=== PATIENT | male | born 1955 | race African-American/Black ===

== ENCOUNTER 2018-06-21 10:00 | Observation (INO) | payer BC, OTHER ==
[2018-06-21 10:34] LABS: Absolute Monocytes 0.6 K/uL (0.1-1.3); Absolute Neutrophil 2.4 K/uL (1.8-8.0); Eosinophils % 1.1 % (0-4.4); Hematocrit 44.5 % (39.6-49.0); Lymphocytes % 38.5 % (15.3-44.8); MPV 9.3 fL (7.6-11.3); Monocytes % 12.5 % (3.3-12.3)
[2018-06-21 10:35] LABS: Protime INR 1.05
[2018-06-21] MEDS ORDERED: NITROGLYCERIN 0.4 MG/TAB SL ONE (10:40)
[2018-06-21] MEDS ORDERED: ASPIRIN EC 81 MG TAB PO ONE (10:40)
[2018-06-21 10:52] LABS: ALT/SGPT 113 U/L (12-78); AST/SGOT 66 U/L (15-37); Albumin 3.8 g/dL (3.4-5.0); Alkaline Phosphatase 55 U/L (45-117); BUN Blood Urea Nitrogen 25 mg/dL (7-18); Bicarbonate 28 mmol/L (21-32); Bilirubin Direct 0.1 mg/dL (0-0.2); Bilirubin Total 0.5 mg/dL (0.2-1.0); Glucose Level 131 mg/dL (74-106); Magnesium 2.4 mg/dL (1.8-2.4); NT PRO-BNP 68 pg/mL (<125); Potassium 3.8 mmol/L (3.5-5.1); Protein, Total 8.6 g/dL (6.4-8.2); Sodium Level 139 mmol/L (136-145); Troponin (Emerg Dept Use Only) < 0.02 ng/mL (0.0-0.045)
--- NOTE | 2018-06-21 11:41 | EDPHYS ---
Physician Documentation [facility] Name: Johny Gamez Age: 63 yrs Sex: Male : 1955 Arrival Date: 06/21/2018 Time: 10:04 Bed 7 Private MD: Moe El E ED Physician Bradly Joseph HPI: 06/21 10:20 This 63 yrs old Black Male presents to ER via Ambulatory with complaints of Chest Pain. cp 10:20 The patient or guardian reports chest pain that is located primarily in the anterior cp chest wall, left. Onset: 2 day(s) ago. The pain does not radiate. The chest pain is described as tight. Duration: The patient or guardian reports multiple episodes, that wax and wane. 10:20 Associated signs and symptoms: Pertinent negatives: abdominal pain, cough, lower cp extremity pain, lower extremity swelling, near syncope, shortness of breath, syncope, vomiting. Modifying factors: the symptoms are aggravated by nothing. Historical: - Allergies: 10:08 No Known Allergies; la1 - Home Meds: 10:08 losartan 125 oral tab 1 tab once daily [Active]; la1 - PMHx: 10:08 Hypertension; Gout; la1 - PSHx: 10:08 None; la1 - Immunization history:: Adult Immunizations up to date. - Social history:: Smoking status: Patient/guardian denies using tobacco. - Ebola Screening: : No symptoms or risks identified at this time. ROS: 10:23 Constitutional: Negative for body aches, chills, fever, poor PO intake. cp 10:23 Eyes: Negative for injury, pain, redness, and discharge. cp 10:23 Cardiovascular: Positive for chest pain, Negative for edema, palpitations. 10:23 Respiratory: Negative for cough, shortness of breath, wheezing. 10:23 Abdomen/GI: Negative for abdominal pain, nausea, vomiting, and diarrhea, constipation, black/tarry stool, rectal bleeding. 10:23 Back: Negative for pain at rest, pain with movement, radiated pain. 10:23 : Negative for urinary symptoms. 10:23 Skin: Negative for cellulitis, rash. 10:23 Neuro: Negative for altered mental status, headache, syncope, weakness. 10:23 All other systems are negative. Exam: 10:25 ECG was reviewed by the Attending Physician. cp 10:30 Constitutional: The patient appears in no acute distress, alert, awake, cp non-diaphoretic, non-toxic, well developed, well nourished. 10:30 Head/Face: Normocephalic, atraumatic. Eyes: Pupils equal round and reactive to light, cp extra-ocular motions intact. Lids and lashes normal. Conjunctiva and sclera are non-icteric and not injected. Cornea within normal limits. Periorbital areas with no swelling, redness, or edema. ENT: Nares patent. No nasal discharge, no septal abnormalities noted. Tympanic membranes are normal and external auditory canals are clear. Oropharynx with no redness, swelling, or masses, exudates, or evidence of obstruction, uvula midline. Mucous membranes moist. Chest/axilla: Normal chest wall appearance and motion. Nontender with no deformity. No lesions are appreciated. 10:30 Cardiovascular: Rate: normal, Rhythm: regular, Pulses: Pulses are 2+ in right radial artery and left radial artery. Heart sounds: murmur, not appreciated, Edema: is not appreciated, JVD: is not appreciated. 10:30 Respiratory: the patient does not display signs of respiratory distress, Respirations: normal, no use of accessory muscles, no retractions, no splinting, no tachypnea, labored breathing, is not present, Breath sounds: are clear throughout, no decreased breath sounds, no stridor, no wheezing. 10:30 Abdomen/GI: Inspection: abdomen appears normal, Bowel sounds: active, all quadrants, Palpation: abdomen is soft and non-tender, in all quadrants. 10:30 Back: pain, is absent, ROM is normal. 10:30 Skin: cellulitis, is not appreciated, no rash present. 10:30 Neuro: Orientation: to person, place \T\ time. Mentation: is normal, Cerebellar function: is grossly normal, Motor: moves all fours, strength is normal, Sensation: is normal. Vital Signs: 10:08 BP 157 / 72; Pulse 88; Resp 18; Temp 97.8(O); Pulse Ox 98% on R/A; Weight 92.99 kg; la1 Height 5 ft. 6 in. (167.64 cm); Pain 6/10; 10:37 BP 142 / 73; Pulse 85; Resp 14; Pulse Ox 100% ; bp 11:04 BP 151 / 78; Pulse 82; Resp 17; Pulse Ox 100% on R/A; ca1 12:05 BP 145 / 68; Pulse 78; Resp 19; Pulse Ox 100% on R/A; ca1 10:08 Body Mass Index 33.09 (92.99 kg, 167.64 cm) la1 MDM: 10:12 Patient medically screened. cp 10:45 The patient was given aspirin in the Emergency Department. cp 11:00 Differential diagnosis: abnormal EKG, acute myocardial infarction, acute pericarditis, cp pericarditis, pleurisy, pneumonia, pneumothorax, pulmonary embolus, stable angina, thoracic aortic disection, unstable angina. 11:39 Data reviewed: vital signs, nurses notes, lab test result(s), EKG, radiologic studies, cp plain films. Physician consultation: Diamante Johnson MD was called at 11:39, was contacted at 11:39, regarding admission, to the telemetry unit. patient's condition. 06/21 10:12 Order name: Basic Metabolic Panel 06/21 10:12 Order name: CBC with Diff 06/21 10:12 Order name: LFT's 06/21 10:12 Order name: Magnesium 06/21 10:12 Order name: NT PRO-BNP 06/21 10:12 Order name: PT-INR 06/21 10:12 Order name: Troponin (emerg Dept Use Only) 06/21 10:36 Order name: CBC with Automated Diff; Complete Time: 11:12 EDMS 06/21 11:13 Interpretation: Normal except: MN% 12.5. cp 06/21 10:37 Order name: Protime (+INR); Complete Time: 11:12 EDMS 06/21 10:52 Order name: Basic Metabolic Panel; Complete Time: 11:12 EDMS 06/21 11:13 Interpretation: Normal except: GLUC 131; BUN 25; CRE 1.31; GFR 67. cp 06/21 10:52 Order name: Liver (Hepatic) Function; Complete Time: 11:12 EDMS 06/21 11:13 Interpretation: Normal except: AST 66; ALT 113; TP 8.6; GLOB 4.8; A/G 0.8. cp 06/21 10:52 Order name: Troponin (Emerg Dept Use Only); Complete Time: 11:12 EDMS 06/21 11:13 Interpretation: TROPED < 0.02; Reviewed. 06/21 10:52 Order name: NT PRO-BNP; Complete Time: 11:12 [facility] 06/21 10:52 Order name: Magnesium; Complete Time: 11:12 ED[facility] 06/21 10:12 Order name: XRAY Chest (1 view) 06/21 10:12 Order name: EKG; Complete Time: 10:13 06/21 10:12 Order name: Cardiac monitoring; Complete Time: 10:20 06/21 10:12 Order name: EKG - Nurse/Tech; Complete Time: 10:20 06/21 10:12 Order name: IV Saline Lock; Complete Time: 10:20 06/21 10:12 Order name: Labs collected and sent; Complete Time: 10:24 06/21 10:12 Order name: O2 Per Protocol; Complete Time: 10:20 06/21 10:12 Order name: O2 Sat Monitoring; Complete Time: 10:20 06/21 11:47 Order name: RAD EDNV EC:25 Rate is 78 beats/min. Rhythm is regular. MA interval is normal. QRS interval is normal. QT interval is normal. Interpreted by me. Reviewed by me. Administered Medications: 10:30 Drug: Aspirin Chewable Tablet 324 mg Route: PO; bp 11:35 Follow up: Response: No adverse reaction bp 10:30 Drug: Nitroglycerin 0.4 mg Route: Sublingual; bp 11:35 Follow up: Response: Pain is decreased bp Disposition: 06/21/18 11:40 Hospitalization ordered by Diamante Johnson for Observation. Preliminary diagnosis is Chest pain, unspecified. - Bed requested for Telemetry/MedSurg (observation). - Status is Observation. ca1 - Condition is Stable. - Problem is new. - Symptoms have improved. UTI on Admission? No Addendum: 06/23/2018 07:45 Co-signature as Attending Physician, Bradly Joseph MD I agree with the assessment and c sales plan of care. Signatures: Dispatcher [employer] [facility] Bradly Joseph MD MD cha Attema, Lee, RN RN la1 Bradly Zhou PA PA cp Peltier, Brian RN RN bp Cardona, Ching eb Acob, Aimee, RN RN ca1 Corrections: (The following items were deleted from the chart) 06/21 12:44 11:40 Hospitalization Ordered by Diamante Johnson MD for Observation. Preliminary diagnosis eb is Chest pain, unspecified. Bed requested for Telemetry/MedSurg (observation). Status is Observation. Condition is Stable. Problem is new. Symptoms have improved. UTI on Admission? No. cp 13:25 12:44 06/21/2018 11:40 Hospitalization Ordered by Diamante Johnson MD for Observation. ca1 Preliminary diagnosis is Chest pain, unspecified. Bed requested for Telemetry/MedSurg (observation). Status is Observation. Condition is Stable. Problem is new. Symptoms have improved. UTI on Admission? No. eb
--- NOTE | 2018-06-21 11:41 | ER ---
Nurse's Notes [facility] Name: Johny Gamez Age: 63 yrs Sex: Male : 1955 Arrival Date: 06/21/2018 Time: 10:04 Bed 7 Private MD: Moe El E Diagnosis: Chest pain, unspecified Presentation: 06/21 10:06 Presenting complaint: Patient states: I have been having chest pain for the last few la1 days, sometimes severe but it has constantly felt tight. Transition of care: patient was not received from another setting of care. Onset of symptoms was June 21, 2018. Risk Assessment: Do you want to hurt yourself or someone else? Patient reports no desire to harm self or others. Initial Sepsis Screen: Does the patient meet any 2 criteria? No. Patient's initial sepsis screen is negative. Does the patient have a suspected source of infection? No. Patient's initial sepsis screen is negative. Care prior to arrival: None. 10:06 Method Of Arrival: Ambulatory la1 10:06 Acuity: THIERRY 3 la1 Historical: - Allergies: 10:08 No Known Allergies; la1 - Home Meds: 10:08 losartan 125 oral tab 1 tab once daily [Active]; la1 - PMHx: 10:08 Hypertension; Gout; la1 - PSHx: 10:08 None; la1 - Immunization history:: Adult Immunizations up to date. - Social history:: Smoking status: Patient/guardian denies using tobacco. - Ebola Screening: : No symptoms or risks identified at this time. Screenin:10 Abuse screen: Denies threats or abuse. Denies injuries from another. Nutritional bp screening: No deficits noted. Tuberculosis screening: No symptoms or risk factors identified. Fall Risk None identified. Assessment: 10:10 General: Appears in no apparent distress. comfortable, Behavior is calm, cooperative, bp appropriate for age. Pain: Complains of pain in chest Pain does not radiate. Pain began 2-3 days ago. Neuro: Level of Consciousness is awake, alert, obeys commands, Oriented to person, place, time, situation, Appropriate for age. Cardiovascular: Rhythm is sinus rhythm. Respiratory: Airway is patent Respiratory effort is even, unlabored, Respiratory pattern is regular, symmetrical. GI: No signs and/or symptoms were reported involving the gastrointestinal system. : No signs and/or symptoms were reported regarding the genitourinary system. EENT: No deficits noted. Derm: No deficits noted. Musculoskeletal: Circulation, motion, and sensation intact. Range of motion: intact in all extremities. 11:04 Reassessment: Patient appears in no apparent distress at this time. Patient and/or ca1 family updated on plan of care and expected duration. Pain level reassessed. Patient is alert, oriented x 3, equal unlabored respirations, skin warm/dry/pink. Patient states he is still in pain but states, "it come and goes". 12:30 Reassessment: Patient appears in no apparent distress at this time. Patient and/or ca1 family updated on plan of care and expected duration. Pain level reassessed. Patient is alert, oriented x 3, equal unlabored respirations, skin warm/dry/pink. Awaiting room assignment. Vital Signs: 10:08 BP 157 / 72; Pulse 88; Resp 18; Temp 97.8(O); Pulse Ox 98% on R/A; Weight 92.99 kg; la1 Height 5 ft. 6 in. (167.64 cm); Pain 6/10; 10:37 BP 142 / 73; Pulse 85; Resp 14; Pulse Ox 100% ; bp 11:04 BP 151 / 78; Pulse 82; Resp 17; Pulse Ox 100% on R/A; ca1 12:05 BP 145 / 68; Pulse 78; Resp 19; Pulse Ox 100% on R/A; ca1 10:08 Body Mass Index 33.09 (92.99 kg, 167.64 cm) la1 ED Course: 10:04 Patient arrived in ED. rg4 10:04 Moe El MD is Private Physician. rg4 10:07 Triage completed. la1 10:07 Bradly Zhou PA is PHCP. cp 10:07 Bradly Joseph MD is Attending Physician. cp 10:08 Arm band placed on left wrist. la1 10:10 Patient has correct armband on for positive identification. Placed in gown. Bed in low bp position. Call light in reach. Side rails up X2. Adult w/ patient. security monitor on. Pulse ox on. NIBP on. 10:13 Grzegorz Banuelos, CASSANDRA is Primary Nurse. bp 10:20 EKG done, by ED staff, reviewed by Bradly ANGELA. jb1 10:20 Inserted saline lock: 20 gauge in right forearm, using aseptic technique. Blood bp collected. Patient maintains SpO2 saturation greater than 95% on room air. 11:40 Diamante Johnson MD is Hospitalizing Provider. cp 13:02 No provider procedures requiring assistance completed. Patient transferred, IV remains ca1 in place. Administered Medications: 10:30 Drug: Aspirin Chewable Tablet 324 mg Route: PO; bp 11:35 Follow up: Response: No adverse reaction bp 10:30 Drug: Nitroglycerin 0.4 mg Route: Sublingual; bp 11:35 Follow up: Response: Pain is decreased bp Outcome: 11:40 Decision to Hospitalize by Provider. cp 13:02 Admitted to Tele accompanied by tech, family with patient, via wheelchair, room 416, ca1 with chart, Report called to Lina Hardy RN 13:02 Condition: stable 13:02 Instructed on the need for admit, Demonstrated understanding of instructions. 13:25 Patient left the ED. ca1 Signatures: Kory Sky jb1 Chauncey Truong, RN RN [email or web address] Bradly Zhou PA PA cp Garcia, Rubi rg4 Grzegorz Banuelos, RN RN bp Aimee Appiah RN RN ca1
--- NOTE | 2018-06-21 11:46 | RAD REPORT ---
EXAM DESCRIPTION: Ke Single View06/21/2018 10:37 am CLINICAL HISTORY: Chest pain COMPARISON: none FINDINGS: The lungs appear clear of acute infiltrate. The heart is normal size IMPRESSION: No acute abnormalities displayed
[2018-06-21 13:31] VITALS: BMI 34.1
[2018-06-21] MEDS ORDERED: POTASSIUM CL SA 10 MEQ TAB PO ONE (13:59)
[2018-06-21] MEDS ORDERED: MORPHINE 4 MG/ML SYR IV ONE (14:44)
[2018-06-21] MEDS ORDERED: INFLUENZA VACCINE (for 3y+) 0.5 ML DOSE IMVAC ONE (15:00)
[2018-06-21] MEDS ORDERED: PNEUMOCOCCAL VACCINE 0.5 ML IMVAC ONE (15:00)
[2018-06-21 15:29] LABS: Urine Appearance CLOUDY; Urine Bilirubin NEGATIVE (NEG); Urine Blood NEGATIVE (NEG); Urine Color YELLOW; Urine Glucose NEGATIVE (NEG); Urine Protein NEGATIVE (NEG); Urine Urobilinogen 0.2 mg/dL (0.2-1.0); Urine pH 5.5 (5.0-7.0)
[2018-06-21 15:34] LABS: Urine Microscopic Reflex ORDER UMIC
[2018-06-21 15:47] LABS: Urine RBC <5 /HPF (NONE SEEN)
[2018-06-21 15:48] LABS: Urine Bacteria 20-50 /HPF (NONE SEEN); Urine Culture Reflex Order NOT NEEDED; Urine Mucus MOD /HPF (NONE SEEN)
--- NOTE | 2018-06-21 18:31 | P.HP ---
Patient History Date of Service: 06/21/18 Primary Care Provider: Dr. webb Reason for admission: Chest pain History of Present Illness: This is a 63-year-old male with hypertension, diabetes, gout and hyperlipidemia admitted for chest pain. Per patient the past few days he has complaints of chest pressure in the substernal area, with no radiation. He states that it feels like something sitting on him. He also has shortness of breath, though this is chronic and not really related were changed with the chest discomfort. He states that the pain is unchanged with exercise, it comes on sometimes even at rest and exertion does not make it worse. He states that it is exacerbated by wrapping it with no alleviating factors. It is intermittent, can experience a few episodes daily, no setting off factors. In the ER, he was found to have elevated blood pressure, continue chest pain and elevated LFTs. He was given aspirin and blood pressure medications. At the time exam, was alert oriented x3 , asymptomatic and was in no acute distress. He denied any headache, dizziness, syncopal/presyncopal episode, vision changes , speech changes, and GI or complaint Allergies No Known Allergies Allergy (Unverified 06/21/18 12:22) Home Medications: Allopurinol 300 mg PO DAILY 06/21/18 Losartan Potassium [Cozaar] 125 mg PO BID 06/21/18 - Past Medical/Surgical History Has patient received pneumonia vaccine in the past: No Diabetic: No -: hypertension -: amara cholesterol - Family History Father History Unknown: Yes -: Heart disease Brother History Unknown: Yes -: Stroke Notes: anurysms - Social History Smoking Status: Never smoker Alcohol use: No CD- Drugs: No Caffeine use: Yes Place of Residence: Home Review of Systems 10-point ROS is otherwise unremarkable Physical Examination - Vital Signs Temperature: 97.0 F Blood Pressure: 130/60 Pulse: 85 Respirations: 18 Pulse Ox (%): 98 - Physical Exam General: Alert, In no apparent distress, Oriented x3, Obese HEENT: Atraumatic, PERRLA, Mucous membr. moist/pink, EOMI, Sclerae nonicteric Neck: Supple, 2+ carotid pulse no bruit, No LAD, Without JVD or thyroid abnormality Respiratory: Clear to auscultation bilaterally, Normal air movement Cardiovascular: Regular rate/rhythm, Normal S1 S2 Gastrointestinal: Normal bowel sounds, No tenderness Musculoskeletal: No tenderness Integumentary: No rashes Neurological: Normal gait, Normal speech, Normal strength at 5/5 x4 extr, Normal tone, Normal affect Lymphatics: No axilla or inguinal lymphadenopathy - Studies Laboratory Data (last 24 hrs) 06/21/18 10:20: PT 12.4, INR 1.05 06/21/18 10:20: WBC 5.1, Hgb 15.0, Hct 44.5, Plt Count 270 06/21/18 10:20: Sodium 139, Potassium 3.8, BUN 25 H, Creatinine 1.31 H, Glucose 131 H, Magnesium 2.4, Total Bilirubin 0.5, AST 66 H, ALT 113 H, Alkaline Phosphatase 55 Assessment and Plan - Problems (Diagnosis) (1) Chest pain Current Visit: Yes Status: Acute Qualifiers: Chest pain type: unspecified Qualified Code(s): R07.9 - Chest pain, unspecified (2) Acute kidney injury Current Visit: Yes Status: Acute (3) Abnormal LFTs (liver function tests) Current Visit: Yes Status: Acute (4) Hypertension Current Visit: Yes Status: Acute Qualifiers: Hypertension type: essential hypertension Qualified Code(s): I10 - Essential (primary) hypertension (5) Obesity (BMI 30.0-34.9) Current Visit: Yes Status: Chronic - Plan This is a 63-year-old male with: Chest pain (Acute) R07.9 Chest pain rule out. Trend troponin Chest pain guidelines cardiology consult Echo ordered Abnormal LFTs (liver function tests) (Acute) R94.5 Recheck tomorrow, if elevated will proceed to get abdominal ultrasound Acute kidney injury (Acute) N17.9 Continue IV fluids. Monitor via a.m. labs Hypertension (Acute) I10 Continue medications Obesity (BMI 30.0-34.9) (Acute) E66.9 DVT prophylaxis: Lovenox GI prophylaxis: Protonix Diet: Heart healthy Disposition: Pending symptomatic improvement and cardiac evaluation - Advance Directives Does patient have a Living Will: No Does patient have a Durable POA for Healthcare: No
[2018-06-21] MEDS: LOSARTAN POTASSIUM PO SCH (21:00)
[2018-06-21 21:24] VITALS: O2SAT 97
[2018-06-22] MEDS: NITROGLYCERIN 0.4 MG/TAB SL PRN ×2 (01:29→07:43)
[2018-06-22] MEDS ORDERED: MORPHINE 2 MG/ML SYR IV ONE (01:52)
[2018-06-22] MEDS ORDERED: MORPHINE 4 MG/ML SYR ONE (02:10)
[2018-06-22 05:46] LABS: Absolute Lymphocytes (CBC) 1.7 K/uL (0.7-4.9); Absolute Monocytes 0.6 K/uL (0.1-1.3); Absolute Neutrophil 2.6 K/uL (1.8-8.0); Basophils % 0.5 % (0-1.3); Eosinophils % 1.6 % (0-4.4); Hematocrit 43.6 % (39.6-49.0); Lymphocytes % 34.3 % (15.3-44.8); MPV 9.6 fL (7.6-11.3); Monocytes % 11.7 % (3.3-12.3); RBC Red Blood Cell Count 4.92 M/uL (4.33-5.43)
[2018-06-22 05:52] LABS: Albumin 3.4 g/dL (3.4-5.0); Bilirubin Total 0.5 mg/dL (0.2-1.0); Potassium 4.4 mmol/L (3.5-5.1)
[2018-06-22] MEDS ORDERED: METOPROLOL TAR 25 MG TAB PO SCH ×2 (06:00)
[2018-06-22 06:25] VITALS: TEMP 98
[2018-06-22] MEDS ORDERED: PANTOPRAZOLE 40MG TABLET PO SCH (06:30)
[2018-06-22 07:44] VITALS: BP 160/90
--- NOTE | 2018-06-22 07:59 | P.PN ---
Date of Service: 06/22/18 Subjective: Patient noted to have some chest pain; this has resolved after he was given morphine; cardiac workup pending Objective: Physical Examination Vitals: Afebrile vital signs are stable Physical exam: Cardiovascular: Regular rate and rhythm no murmurs Diagnostic data has been reviewed ASST: 1. Chest pain rule out acute coronary syndrome PLAN: 1. Continue with current plan of care
[2018-06-22] MEDS ORDERED: CEFTRIAXONE/SWI 1gm 1 GM/10 ML SYR IV SCH (09:00)
[2018-06-22] MEDS ORDERED: ASPIRIN EC 81 MG TAB PO SCH (09:00)
[2018-06-22] MEDS ORDERED: CLOPIDOGREL 75 MG TABLET PO SCH (09:00)
[2018-06-22] MEDS: LOSARTAN POTASSIUM PO SCH (09:00)
[2018-06-22] MEDS ORDERED: ALLOPURINOL 300 MG TAB PO SCH (09:00)
[2018-06-22] MEDS ORDERED: LOSARTAN/HCTZ 50-12.5 PO SCH (10:00)
--- NOTE | 2018-06-22 11:25 | EKG ---
Test Date: 2018-06-21 Test Time: 10:12:31 International Student Counselor: CHRIS MEASUREMENT RESULTS: Intervals: Rate: 78 CT: 168 QRSD: 96 QT: 360 QTc: 410 [place]: P: 58 CT: 168 QRS: 41 T: 25 INTERPRETIVE STATEMENTS: Normal sinus rhythm Minimal voltage criteria for LVH, may be normal variant Nonspecific ST and T wave abnormality Abnormal ECG No previous ECG available for comparison Electronically Signed On 06-22-18 11:23:46 ACCOUNT ADJUSTER by Gómez Smith
--- NOTE | 2018-06-22 12:49 | P.SSS ---
Patient History Date of Service: 06/22/18 Primary Care Provider: Dr. webb Reason for admission: Chest pain History of Present Illness: This is a 63-year-old male with hypertension, diabetes, gout and hyperlipidemia admitted for chest pain. Per patient the past few days he has complaints of chest pressure in the substernal area, with no radiation. He states that it feels like something sitting on him. He also has shortness of breath, though this is chronic and not really related were changed with the chest discomfort. He states that the pain is unchanged with exercise, it comes on sometimes even at rest and exertion does not make it worse. He states that it is exacerbated by wrapping it with no alleviating factors. It is intermittent, can experience a few episodes daily, no setting off factors. In the ER, he was found to have elevated blood pressure, continue chest pain and elevated LFTs. He was given aspirin and blood pressure medications. At the time exam, was alert oriented x3 , asymptomatic and was in no acute distress. He denied any headache, dizziness, syncopal/presyncopal episode, vision changes , speech changes, and GI or complaint Allergies No Known Allergies Allergy (Unverified 06/21/18 12:22) Home Medications: Allopurinol 300 mg PO DAILY 06/21/18 Losartan/Hydrochlorothiazide [Losartan-Hctz 100-25 mg Tab] 1 tab PO DAILY Nitroglycerin [Nitrostat*] 0.4 mg SL UD PRN #15 tab 06/22/18 Pantoprazole [Protonix Tab*] 40 mg PO DAILYAC #30 tab 06/22/18 - Past Medical/Surgical History Has patient received pneumonia vaccine in the past: No Diabetic: No -: hypertension -: amara cholesterol - Family History Father History Unknown: Yes -: Heart disease Brother History Unknown: Yes -: Stroke Notes: anurysms - Social History Smoking Status: Never smoker Alcohol use: No CD- Drugs: No Caffeine use: Yes Place of Residence: Home Review of Systems 10-point ROS is otherwise unremarkable Physical Examination - Vital Signs Temperature: 98 F Blood Pressure: 160/90 Pulse: 76 Respirations: 18 Pulse Ox (%): 98 - Physical Exam General: Alert, In no apparent distress, Oriented x3 HEENT: Atraumatic, PERRLA, Mucous membr. moist/pink, EOMI, Sclerae nonicteric Neck: Supple, 2+ carotid pulse no bruit, No LAD, Without JVD or thyroid abnormality Respiratory: Clear to auscultation bilaterally, Normal air movement Cardiovascular: Regular rate/rhythm, Normal S1 S2 Gastrointestinal: Normal bowel sounds, No tenderness Musculoskeletal: No tenderness Integumentary: No rashes Neurological: Normal gait, Normal speech, Normal strength at 5/5 x4 extr, Normal tone, Normal affect Lymphatics: No axilla or inguinal lymphadenopathy - Diagnosis (Problem(s)) (1) Chest pain Current Visit: Yes Status: Acute Qualifiers: Chest pain type: unspecified Qualified Code(s): R07.9 - Chest pain, unspecified (2) Acute kidney injury Current Visit: Yes Status: Acute (3) Abnormal LFTs (liver function tests) Current Visit: Yes Status: Acute (4) Hypertension Current Visit: Yes Status: Acute Qualifiers: Hypertension type: essential hypertension Qualified Code(s): I10 - Essential (primary) hypertension (5) Obesity (BMI 30.0-34.9) Current Visit: Yes Status: Chronic Treatment Summary: Patient was admitted for chest pain. Troponins remained negative, EKG with no acute changes. Cardiology was consulted and patient was subsequently cleared for discharge by the coil rewind machine operator. Prior to discharge, patient was asymptomatic , hemodynamically stable over oriented x3. He was instructed to follow up with his primary care physician 1 week at a coil rewind machine operator in 3-4 weeks. - Disposition Disposition: ROUTINE DISCHARGE Condition: GOOD Consultations: Cardiology, Dr. Smith Patient Discharge Instructions: Please follow up with your primary care physician 1 week. Please follow up with the coil rewind machine operator in 2-4 weeks. Return to the emergency room for worsening symptoms Diet: AHA Activity: Ad blaze Time Spent Managing Pts Care (In Minutes): 55
--- NOTE | 2018-06-23 00:14 | CON ---
Date of Consultation: 06/22/2018 Reason For Consultation: Chest pain. History Of Present Illness: Mr. Gamez is a 63-year-old black male with history of hypertension and g out. He has seen Dr. Robles in the past and has had an extensive negative cardiac workup. He came in with chest pain that is left-sided upper shoulder area without any nausea, vomiting, diaphoresis, PND, orthopnea, pedal edema, palpitations, or syncope. He said his symptoms usually wake him up at n ight and gets worse when he lies down and gets worse when he eats. Past Medical History: Includes hypertension and gout. Allergies: NONE. Review of Systems: Negative. Social History: Negative. Family History: Negative. Medications: Include losartan and allopurinol. Physical Examination: Vital Signs: Stable. He was afebrile. HEENT: Negative. Neck: Supple no bruit. Chest: Clear to auscultation and percussion. Cardiac: Revealed an S4 gallops. Regular rhythm and rate. Abdomen: Benign. Extremities: Revealed no clubbing, cyanosis, or edema. Diagnostic Data: Include a creatinine 1.31. Rest of it was normal. EKG is normal. Chest x-ray is normal. Impression And Plan: 1.Chest pain, most likely gastroesophageal reflux disease related. Symptoms gets worse when he lies down, wakes up with it, gets worse after he eats. Has had a negative cardiac workup by Dr. Robles. He can go home as far as I am concerned and follow up with Dr. Robles and his family care robert arias at his convenience. 2.Gout. 3.Hypertension, well controlled. 4.Renal insufficiency. NB/MODL Voice ID: [id number] Report ID: [id number]
--- NOTE | 2018-06-23 11:48 | EKG ---
Test Date: 2018-06-22 Test Time: 01:23:36 Jailer Chief: RT MEASUREMENT RESULTS: Intervals: Rate: 81 [place]: 168 QRSD: 96 QT: 352 QTc: 408 [place]: P: 68 [place]: 168 QRS: 42 T: 42 INTERPRETIVE STATEMENTS: Normal sinus rhythm ST abnormality, possible digitalis effect Abnormal ECG Compared to ECG 06/21/2018 10:12:31 Left ventricular hypertrophy no longer present ST (T wave) deviation still present Electronically Signed On 06-23-18 11:43:15 [employer]ASS [employer] MACHINE ADJUSTER by Gómez Smith
== END 2018-06-22 14:45 | disposition home or self-care (01) ==
LOC: ER 10:00 → ERHOLD 11:49 → 4TH 13:05
PROVIDERS: ADMIT Family Medicine; ATTEND Family Medicine
DX: R07.9 Chest pain, unspecified (principal); N17.9 Acute kidney failure, unspecified; R94.5 Abnormal results of liver function studies; I10 Essential (primary) hypertension; E11.9 Type 2 diabetes mellitus without complications; M10.9 Gout, unspecified; E78.5 Hyperlipidemia, unspecified; E66.9 Obesity, unspecified; Z68.34 Body mass index [BMI] 34.0-34.9, adult
CPT/HCPCS: 36415; 71045; 80048; 80053; 80076; 81003; 81015; 83735; 83880; 84484; 85025; 85610; 87086; 87088; 93005; 94760; G0378; J0696

== ENCOUNTER 2023-06-16 11:27 | Inpatient (IN) | payer BC, OTHER ==
[2023-06-16] MEDS ORDERED: NA CHLORIDE 0.9% 1,000 ML ONE (11:39)
[2023-06-16 11:43] LABS: Absolute Lymphocytes (CBC) 0.8 K/uL (0.7-4.9); Hematocrit 37.6 % (39.6-49.0); Lymphocytes % 13.3 % (15.3-44.8); MCV 86.4 fL (80-100); MPV 9.3 fL (7.6-11.3); Platelets 213 thou/uL (152-406); RBC Red Blood Cell Count 4.35 M/uL (4.33-5.43)
[2023-06-16 11:46] LABS: Protime INR 1.09
[2023-06-16 12:00] LABS: Albumin 3.5 g/dL (3.4-5.0); Bilirubin Direct 0.1 mg/dL (0-0.2); Bilirubin Indirect, Calculated 0.2 mg/dL (0.2-0.8); Bilirubin Total 0.3 mg/dL (0.2-1.0); Magnesium 2.1 mg/dL (1.6-2.4); Potassium 3.5 mEq/L (3.5-5.1); Protein, Total 7.7 g/dL (6.4-8.2); Troponin High Sensitivity 34.2 pg/mL (<58.9)
[2023-06-16 12:02] LABS: Specific Gravity 1.018 (1.005-1.030); Urine Bilirubin NEGATIVE (Negative); Urine Blood Negative (Negative); Urine Clarity Clear (Clear); Urine Color Colorless (Yellow); Urine Glucose 2+ (Negative); Urine Protein NEGATIVE (Negative); Urine Urobilinogen Normal (Normal); Urine pH 6.5 (5.0-7.0)
[2023-06-16] MEDS ORDERED: ENOXAPARIN 100 MG/ML SYR SQ ONE (12:34)
--- NOTE | 2023-06-16 12:37 | RAD REPORT ---
EXAM DESCRIPTION: Ke Single View06/16/2023 12:27 pm CLINICAL HISTORY: Chest pain COMPARISON: 2017 FINDINGS: The lungs appear clear of acute infiltrate. The heart is normal size IMPRESSION: No acute abnormalities displayed
--- NOTE | 2023-06-16 12:50 | EDPHYS ---
Physician Documentation [facility] Name: Johny Gamez Age: 68 yrs Sex: Male : 1955 Arrival Date: 06/16/2023 Time: 11:27 Bed 5 Private MD: ED Physician Bradly Joseph HPI: 06/16 12:39 This 68 yrs old Black Male presents to ER via EMS with complaints of cp at work. sb 12:39 The patient has shortness of breath with light activity. Onset: The symptoms/episode sb began/occurred just prior to arrival. Duration: The symptoms are intermittent, with no pattern, lasted 20 min. The patient's shortness of breath is aggravated by exertion, light activity, is alleviated by rest, application of supplemental oxygen. The patient or guardian reports chest pain that is located primarily in the substernal area, anterior chest wall, bilaterally. Onset: just prior to arrival. The pain does not radiate. Associated signs and symptoms: Pertinent positives: chest pain. Severity of symptoms: At their worst the symptoms were mild moderate in the emergency department the symptoms have resolved and did so just prior to arrival. Associated signs and symptoms: The patient has no apparent associated signs or symptoms. Modifying factors: The symptoms are alleviated by NTG, application of supplemental oxygen, remaining still, the symptoms are aggravated by nothing. Severity of pain: At its worst the pain was moderate in the emergency department the pain has resolved and did so just prior to arrival. Historical: - Allergies: 11:34 No Known Allergies; ld1 - PMHx: 11:34 Hypertension; Gout; Hypercholesterolemia; ld1 - Immunization history:: Adult Immunizations up to date. - Social history:: Smoking status: Patient denies any tobacco usage or history of. Patient/guardian denies using alcohol. - Family history:: not pertinent. ROS: 12:39 Constitutional: Negative for fever, chills, and weight loss, Eyes: Negative for injury, sb pain, redness, and discharge, ENT: Negative for injury, pain, and discharge, Neck: Negative for injury, pain, and swelling, Respiratory: Negative for shortness of breath, cough, wheezing, and pleuritic chest pain, Abdomen/GI: Negative for abdominal pain, nausea, vomiting, diarrhea, and constipation, Back: Negative for injury and pain, : Negative for injury, bleeding, discharge, and swelling, MS/Extremity: Negative for injury and deformity, Skin: Negative for injury, rash, and discoloration, Neuro: Negative for headache, weakness, numbness, tingling, and seizure, Psych: Negative for depression, anxiety, suicide ideation, homicidal ideation, and hallucinations, Allergy/Immunology: Negative for hives, rash, and allergies, Endocrine: Negative for neck swelling, polydipsia, polyuria, polyphagia, and marked weight changes, 12:39 Cardiovascular: Positive for chest pain, of the chest, Exam: 12:39 Constitutional: This is a well developed, well nourished patient who is awake, alert, sb and in no acute distress. Head/Face: Normocephalic, atraumatic. Eyes: Pupils equal round and reactive to light, extra-ocular motions intact. Lids and lashes normal. Conjunctiva and sclera are non-icteric and not injected. Cornea within normal limits. Periorbital areas with no swelling, redness, or edema. ENT: Nares patent. No nasal discharge, no septal abnormalities noted. Tympanic membranes are normal and external auditory canals are clear. Oropharynx with no redness, swelling, or masses, exudates, or evidence of obstruction, uvula midline. Mucous membranes moist. Neck: Trachea midline, no thyromegaly or masses palpated, and no cervical lymphadenopathy. Supple, full range of motion without nuchal rigidity, or vertebral point tenderness. No Meningismus. Chest/axilla: Normal chest wall appearance and motion. Nontender with no deformity. No lesions are appreciated. Cardiovascular: Regular rate and rhythm with a normal S1 and S2. No gallops, murmurs, or rubs. Normal PMI, no JVD. No pulse deficits. Respiratory: Lungs have equal breath sounds bilaterally, clear to auscultation and percussion. No rales, rhonchi or wheezes noted. No increased work of breathing, no retractions or nasal flaring. Abdomen/GI: Soft, non-tender, with normal bowel sounds. No distension or tympany. No guarding or rebound. No evidence of tenderness throughout. Back: No spinal tenderness. No costovertebral tenderness. Full range of motion. Male : Normal genitalia with no discharge or lesions. Skin: Warm, dry with normal turgor. Normal color with no rashes, no lesions, and no evidence of cellulitis. MS/ Extremity: Pulses equal, no cyanosis. Neurovascular intact. Full, normal range of motion. Neuro: Awake and alert, GCS 15, oriented to person, place, time, and situation. Cranial nerves II-XII grossly intact. Motor strength 5/5 in all extremities. Sensory grossly intact. Cerebellar exam normal. Normal gait. Psych: Awake, alert, with orientation to person, place and time. Behavior, mood, and affect are within normal limits. 12:39 ECG was reviewed by the Attending Physician. Vital Signs: 11:33 BP 162 / 69; Pulse 76; Resp 18; Pulse Ox 98% on R/A; Weight 92.53 kg; Height 5 ft. 6 ld1 in. ; Pain 0/10; 12:33 BP 154 / 76; Pulse 77; Resp 18; Pulse Ox 100% on R/A; mb9 12:38 BP 151 / 67; Pulse 76; Resp 18; Pulse Ox 100% on R/A; ld1 13:19 BP 150 / 67; Pulse 78; Resp 18; Pulse Ox 100% on R/A; ld1 15:52 BP 161 / 74; Pulse 72; Resp 18; Pulse Ox 100% on R/A; ld1 11:33 Body Mass Index 32.93 (92.53 kg, 167.64 cm) ld1 11:33 Pain Scale: Adult ld1 MDM: 11:30 Patient medically screened. sb 12:43 Differential diagnosis: Anemia Anxiety Reaction abnormal EKG, acute myocardial sb infarction, acute pericarditis, anxiety, coronary artery disease chest wall pain, congestive heart failure herpes zoster, pancreatitis, peptic ulcer disease, pulmonary embolus, stable angina, unstable angina, Myocardial Infarction Unstable Angina. Antibiotic administration: Not indicated. HEART Score: History: Moderately Suspicious (1), ECG: Non specific repolarization disturbance / LBTB / PM (1), Age: > or = 65 years (2), Risk Factors: > or = 3 Risk factors for atherosclerotic disease (2), [Hypercholesterolemia] [Hypertension] [+ Family HX] [Obesity] Troponin: < or = 1 x Normal Limit (0). The patient was given aspirin in the Emergency Department. ASYA Risk Score: 1 - patient's age is greater or equal to 65 years, 1 - Three or more CAD risk factors, 1- Known CAD, 1 - ASA use in past 7 days, 1 - Recent [<24hrs] Severe Angina, TOTAL SCORE = 5. Immunization status: Pneumococcal vaccine: within last 5 years. Influenza vaccine: within last 5 years. Data reviewed: vital signs, nurses notes, EMS record, lab test result(s), EKG, radiologic studies, plain films. Consideration of Admission/Observation Patient was admitted/placed on observation. Escalation of care including admission/observation considered. I considered the following discharge prescriptions or medication management in the emergency department Medications were administered in the Emergency Department. See MAR. Independent interpretation of the following test(s) in the Emergency Department EKG: See my EKG interpretation above. Test considered but Not performed: CT: no ct chest. Historians other than the Patient: Family Member: daughter, reggie informrd. Care significantly affected by the following chronic conditions: Hypertension, Obesity. 06/16 11:31 Order name: Basic Metabolic Panel; Complete Time: 12:32 [facility] 06/16 11:31 Order name: CBC with Diff; Complete Time: 12:32 [facility] 06/16 11:31 Order name: LFT's; Complete Time: 12:32 sb 06/16 11:31 Order name: Magnesium; Complete Time: 12:32 sb 06/16 11:31 Order name: NT PRO-BNP; Complete Time: 12:32 sb 06/16 11:31 Order name: PT-INR; Complete Time: 12:32 sb 06/16 11:31 Order name: Troponin HS; Complete Time: 12:32 [facility] 06/16 11:31 Order name: Lipase; Complete Time: 12:32 [facility] 06/16 11:31 Order name: Urinalysis w/ reflexes; Complete Time: 12:32 [facility] 06/16 14:33 Order name: T4 Free EDMS 06/16 14:33 Order name: Thyroid Stimulating Hormone EDMS 06/16 14:33 Order name: Basic Metabolic Panel EDMS 06/16 14:33 Order name: Basic Metabolic Panel EDMS 06/16 14:33 Order name: CBC with Automated Diff EDMS 06/16 14:33 Order name: CBC with Automated Diff EDMS 06/16 14:33 Order name: Lipid Profile EDMS 06/16 14:33 Order name: Lipid Profile EDMS 06/16 14:33 Order name: Magnesium EDMS 06/16 14:33 Order name: Magnesium EDMS 06/16 14:33 Order name: Phosphorus EDMS 06/16 14:33 Order name: Phosphorus EDMS 06/16 14:33 Order name: Troponin High Sensitivity EDMS 06/16 14:33 Order name: Troponin High Sensitivity [facility] 06/16 14:33 Order name: Troponin High Sensitivity ED[facility] 06/16 14:33 Order name: Troponin High Sensitivity [facility] 06/16 11:31 Order name: XRAY Chest (1 view); Complete Time: 12:38 [facility] 06/16 14:33 Order name: Echo with Doppler [facility] 06/16 11:31 Order name: EKG; Complete Time: 11:32 [facility] 06/16 14:33 Order name: CONS Physician Consult [facility] 06/16 14:33 Order name: EKG Electrocardiogram [facility] 06/16 14:33 Order name: EKG Electrocardiogram [facility] 06/16 14:33 Order name: EKG Electrocardiogram [facility] 06/16 11:31 Order name: Cardiac monitoring; Complete Time: 11:33 [facility] 06/16 11:31 Order name: EKG - Nurse/Tech; Complete Time: 11:33 [facility] 06/16 11:31 Order name: IV Saline Lock; Complete Time: 11:33 [facility] 06/16 11:31 Order name: Labs collected and sent; Complete Time: 11:33 [facility] 06/16 11:31 Order name: O2 Per Protocol; Complete Time: 11:33 [facility] 06/16 11:31 Order name: O2 Sat Monitoring; Complete Time: 11:33 [facility] EC:39 Rate is 77 beats/min. Rhythm is regular. QRS Thomas is Normal. SD interval is normal. QRS sb interval is normal. QT interval is normal. No Q waves. T waves are Normal. No ST changes noted. Clinical impression: NSR w/ Non-specific ST/T Changes and No evidence of ischemia. Interpreted by me. Reviewed by me. Administered Medications: 11:36 Not Given (Pt took 4 aspirin PTO): aspirinchewable tablet 81 mg PO once ld1 11:43 Drug: NS 0.9% IV 1000 ml IV at 125 ml/hr continuous Route: IV; Rate: 125 ml/hr; Site: ld1 left antecubital; 12:38 Drug: Enoxaparin Sub-Q 1 mg/kg Sub-Q once Route: Sub-Q; Site: right upper arm; ld1 Disposition Summary: 06/16/23 12:49 Hospitalization Ordered Notes: Hospitalization Status: Observation sb Provider: Anuel Cain cha Location: Telemetry/MedSurg (observation) sb Condition: Stable sb Problem: new sb Symptoms: have improved sb Bed/Room Type: Standard sb Room Assignment: 418(06/16/23 14:45) eb Diagnosis - Chest pain, unspecified sb - Angina pectoris, unspecified sb - Unstable angina sb - Unspecified kidney failure sb Forms: - Medication Reconciliation Form sb - SBAR form sb - Leadership Thank You Letter sb Signatures: Dispatcher [employer] Bradly Baker MD MD cha Botello, Elizabeth eb Sims, Lauren RN RN ld1 Corrections: (The following items were deleted from the chart) 14:45 12:49 sb eb
--- NOTE | 2023-06-16 12:50 | ER ---
Nurse's Notes [facility] Name: Johny Gamez Age: 68 yrs Sex: Male : 1955 Arrival Date: 06/16/2023 Time: 11:27 Bed 5 Private MD: Diagnosis: Chest pain, unspecified;Angina pectoris, unspecified;Unstable angina;Unspecified kidney failure Presentation: 06/16 11:33 Chief complaint: EMS states: Pt developed chest pain this morning at work at 0800. EMS ld1 administered 324 ASA and 1 Sublingual nitroglycerin. Upon arrival to ED pt denies chest pain. Coronavirus screen: At this time, the client does not indicate any symptoms associated with coronavirus-19. Ebola Screen: No symptoms or risks identified at this time. Initial Sepsis Screen: Does the patient meet any 2 criteria? No. Patient's initial sepsis screen is negative. Does the patient have a suspected source of infection? No. Patient's initial sepsis screen is negative. Risk Assessment: Do you want to hurt yourself or someone else? Patient reports no desire to harm self or others. Onset of symptoms was June 16, 2023. 11:33 Method Of Arrival: EMS: [facility] ld1 11:33 Acuity: THIERRY 3 ld1 Triage Assessment: 11:34 General: Appears in no apparent distress. comfortable, Behavior is calm, cooperative, ld1 appropriate for age. Pain: Complains of pain in chest Pain does not radiate. Pain currently is 0 out of 10 on a pain scale. at worst was 8 out of 10 on a pain scale. Quality of pain is described as heavy, throbbing, Pain began 3 hours ago. Is intermittent. EENT: No signs and/or symptoms were reported regarding the EENT system. Neuro: Level of Consciousness is awake, alert, obeys commands, Oriented to person, place, time, situation. Cardiovascular: Capillary refill < 3 seconds Patient's skin is warm and dry. Rhythm is sinus rhythm. Respiratory: Airway is patent Respiratory effort is even, unlabored. GI: Abdomen is round non-distended. : No signs and/or symptoms were reported regarding the genitourinary system. Derm: No signs and/or symptoms reported regarding the dermatologic system. Musculoskeletal: No signs and/or symptoms reported regarding the musculoskeletal system. Historical: - Allergies: 11:34 No Known Allergies; ld1 - PMHx: 11:34 Hypertension; Gout; Hypercholesterolemia; ld1 - Immunization history:: Adult Immunizations up to date. - Social history:: Smoking status: Patient denies any tobacco usage or history of. Patient/guardian denies using alcohol. - Family history:: not pertinent. Screenin:35 [facility] ED Fall Risk Assessment (Adult) History of falling in the last 3 months, ld1 including since admission No falls in past 3 months (0 pts). Abuse screen: Denies threats or abuse. Denies injuries from another. Nutritional screening: No deficits noted. Tuberculosis screening: No symptoms or risk factors identified. Assessment: 11:35 Reassessment: See triage assessment. ld1 12:38 Reassessment: Patient appears in no apparent distress at this time. No changes from ld1 previously documented assessment. Patient and/or family updated on plan of care and expected duration. Pain level reassessed. Patient is alert, oriented x 3, equal unlabored respirations, skin warm/dry/pink. 13:19 Reassessment: Patient appears in no apparent distress at this time. No changes from ld1 previously documented assessment. Patient and/or family updated on plan of care and expected duration. Pain level reassessed. Patient is alert, oriented x 3, equal unlabored respirations, skin warm/dry/pink. Vital Signs: 11:33 BP 162 / 69; Pulse 76; Resp 18; Pulse Ox 98% on R/A; Weight 92.53 kg; Height 5 ft. 6 ld1 in. ; Pain 0/10; 12:33 BP 154 / 76; Pulse 77; Resp 18; Pulse Ox 100% on R/A; mb9 12:38 BP 151 / 67; Pulse 76; Resp 18; Pulse Ox 100% on R/A; ld1 13:19 BP 150 / 67; Pulse 78; Resp 18; Pulse Ox 100% on R/A; ld1 15:52 BP 161 / 74; Pulse 72; Resp 18; Pulse Ox 100% on R/A; ld1 11:33 Body Mass Index 32.93 (92.53 kg, 167.64 cm) ld1 11:33 Pain Scale: Adult ld1 ED Course: 11:29 Patient arrived in ED. eb 11:29 Maintain EMS IV. Dressing intact. Good blood return noted. Site clean \T\ dry. Gauge \T\ mb 4 site: 20G Right AC. 11:30 Bradly Joseph MD is Attending Physician. sb 11:32 Deepthi Rao RN is Primary Nurse. ld1 11:34 Triage completed. ld1 11:34 Arm band placed on right wrist. ld1 11:35 Patient has correct armband on for positive identification. Placed in gown. Bed in low ld1 position. Call light in reach. Side rails up X2. environmental monitoring technician on. Pulse ox on. NIBP on. Door closed. Noise minimized. Warm blanket given. 11:35 No provider procedures requiring assistance completed. ld1 11:36 Initial lab(s) drawn, by id, sent to lab. mb4 11:42 Basic Metabolic Panel Sent. mb4 11:42 CBC with Diff Sent. mb4 11:43 LFT's Sent. mb4 11:43 Magnesium Sent. mb4 11:43 NT PRO-BNP Sent. mb4 11:43 PT-INR Sent. mb4 11:43 Troponin HS Sent. mb4 11:43 Lipase Sent. mb4 12:29 XRAY Chest (1 view) In Process Unspecified. EDMS 12:49 Anuel Cain is Hospitalizing Provider. sb 15:53 Patient admitted, IV remains in place. ld1 Administered Medications: 11:36 Not Given (Pt took 4 aspirin PTO): aspirinchewable tablet 81 mg PO once ld1 11:43 Drug: NS 0.9% IV 1000 ml IV at 125 ml/hr continuous Route: IV; Rate: 125 ml/hr; Site: ld1 left antecubital; 12:38 Drug: Enoxaparin Sub-Q 1 mg/kg Sub-Q once Route: Sub-Q; Site: right upper arm; ld1 Medication: 11:35 VIS not applicable for this client. ld1 Outcome: 12:49 Decision to Hospitalize by Provider. sb 15:52 Admitted to ld1 15:52 Admitted to Med/surg accompanied by melia, room 409, Report called to CASSANDRA Daniel 15:52 Condition: stable 15:52 Instructed on the need for admit, 15:53 Patient left the ED. ld1 Signatures: Dispatcher [employer] [facility] Bradly Joseph MD MD cha Botello, Elizabeth eb Baxter, Mackenzie mb4 Deepthi Rao RN RN ld1 Maddy, Maribell So, RN RN mb9
[2023-06-16] MEDS ORDERED: MORPHINE 2 MG/ML SYR IV PRN (14:22)
[2023-06-16] MEDS ORDERED: NITROGLYCERIN 0.4 MG/TAB SL PRN (14:22)
[2023-06-16] MEDS ORDERED: ACETAMINOPHEN 500 MG TAB PO PRN (14:22)
[2023-06-16 18:40] LABS: Thyroid Stimulating Hormone 0.926 uIU/mL (0.358-3.740)
--- NOTE | 2023-06-16 20:17 | P.HP ---
Certification for Inpatient Patient admitted to: Observation With expected LOS: >2 Midnights Patient will require the following post-hospital care: None Practitioner: I am a practitioner with admitting privileges, knowledge of patient current condition, hospital course, and medical plan of care. Services: Services provided to patient in accordance with Admission requirements found in Title 42 Section 412.3 of the Code of Federal Regulations Patient History Date of Service: 06/17/23 Reason for admission: Chest pain R/O ACS History of Present Illness: Johny Gamez is a 68 year old male with Pmhx GERD, HTN, HLD, CAD, PAD (stents to BLE) who presents to the ED c/o left sided chest pain radiating to the left arm with SOB with light activity that started this morning at 9 AM at work. He reports dealing with chest tightness for 7 years. He had a stress test in March of 2023 at [facility] and a stent placed to his right lower extremity which continues to swell off and on. May of 2023 he had a stent placed in his LLE. Laboratory evaluations troponin 34.2, BNP 186, lipase 56, BUN/creatinine 26/1.38, GFR 55, serum glucose 181. Initial BP 162/69, HR 76, Resp 18, oxygen saturation 98% on RA. EKG reports "Rate is 77 beats/min. Rhythm is regular. QRS axis is normal. [place] interval is normal. QRS interval is normal. No Q waves. Twaves are normal. No ST changes noted. Clinical impression : NSR w/ non-specific ST/T changes and no evidence of ischemia." Chest xray reports "Lungs appear clear of acute infiltrate. The heart is normal size, no acute abnormalitis displayed." Johny will be admitted to hospitalist service for further evaluation of chest pain r/o ACS. Dr. Huber consulted. Allergies No Known Allergies Allergy (Verified 06/16/23 15:23) Home Medications: Allopurinol 300 mg PO DAILY 06/21/18 Losartan/Hydrochlorothiazide [Losartan-Hctz 100-25 mg Tab] 1 tab PO DAILY 06/22/18 Nitroglycerin [Nitrostat*] 0.4 mg SL UD PRN #15 tab 06/22/18 Pantoprazole [Protonix Tab*] 40 mg PO DAILYAC #30 tab 06/22/18 - Past Medical/Surgical History Has patient received pneumonia vaccine in the past: Yes Diabetic: No -: hypertension -: amara cholesterol -: Gout -: bilateral femoral stents - Family History Father -: Heart disease Brother -: Stroke Notes: anurysms - Social History Smoking Status: Never smoker Alcohol use: Yes CD- Drugs: No Caffeine use: Yes Place of Residence: Home Review of Systems General: Chills Cardiovascular: Chest Pain (right sided), Palpitations, Other (chest tightness) Physical Examination - Vital Signs Temperature: 97.4 F Blood Pressure: 169/69 Pulse: 80 Respirations: 16 Pulse Ox (%): 99 - Physical Exam General: Alert, In no apparent distress, Oriented x3 HEENT: Atraumatic, Normocephalic, PERRLA Neck: Supple, 2+ carotid pulse no bruit Respiratory: Clear to auscultation bilaterally, Normal air movement Cardiovascular: No edema, Normal pulses, Regular rate/rhythm, Normal S1 S2 Capillary refill: <2 Seconds Gastrointestinal: Normal bowel sounds, Soft and benign, Distended Musculoskeletal: No clubbing, No swelling, No contractures Neurological: Normal speech, Normal strength at 5/5 x4 extr - Studies Laboratory Data (last 24 hrs) 06/16/23 06/16/23 06/16/23 11:31 11:31 11:31 WBC 6.20 Hgb 12.6 L Hct 37.6 L Plt Count 213 PT 12.0 INR 1.09 Sodium 136 Potassium 3.5 BUN 26 H Creatinine 1.38 H Glucose 181 H Magnesium 2.1 Total Bilirubin 0.3 AST 16 ALT 28 Alkaline Phosphatase 55 Lipase 54 Assessment and Plan - Plan assessment and plan Chest pain r/o ACS CAD -Chest xray reports "Lungs appear clear of acute infiltrate. The heart is normal size, no acute abnormalitis displayed." - initial labs Troponin 34.2 serial pending, BNP 186 -Full dose lovenox given in the ED -ASA, statin, nitroglycerin SL -EKG reports "Rate is 77 beats/min. Rhythm is regular. QRS axis is normal. [place] interval is normal. QRS interval is normal. No Q waves. Twaves are normal. No ST changes noted. Clinical impression : NSR w/ non-specific ST/T changes and no evidence of ischemia." -Serial EKG -ECHO ordered -consult Cardiology -Stress test clear in March Hyperglycemia A1c pending Serum glucose 181 CRISTY BUN/creatinine 26/1.38, GFR 55 holding IVF with BNP 186 re-evaluate in AM labs Hypertensive disorder BP 162/69 in ED Restart home medications Lopressor IV AZ Monitor Q4h HLD GERD restart home medications DVT ppx lovenox full code LOS 2 days Discharge Plan: Home Plan to discharge in: 48 Hours - Advance Directives Does patient have a Living Will: No Does patient have a Durable POA for Healthcare: No Time Spent Managing Pts Care (In Minutes): 50
[2023-06-16] MEDS: LOSARTAN/HCTZ 50-12.5 PO SCH (20:22)
[2023-06-16] MEDS ORDERED: METOPROLOL TARTRATE 5 MG/5 ML INJ IV PRN (20:23)
[2023-06-16] MEDS: ATORVASTATIN 40 MG TAB PO SCH (20:56)
[2023-06-16] MEDS: HYDRALAZINE HCL 20 MG/ML VIAL IV PRN (20:56)
[2023-06-17 03:33] LABS: Absolute Lymphocytes (CBC) 1.8 K/uL (0.7-4.9); Hematocrit 34.8 % (39.6-49.0); Lymphocytes % 30.2 % (15.3-44.8); MCV 87.6 fL (80-100); MPV 9.7 fL (7.6-11.3); Platelets 223 thou/uL (152-406); RBC Red Blood Cell Count 3.97 M/uL (4.33-5.43)
[2023-06-17 03:54] LABS: Magnesium 2.2 mg/dL (1.6-2.4); Phosphorus 3.1 mg/dL (2.5-4.9); Potassium 3.5 mEq/L (3.5-5.1)
[2023-06-17] MEDS: PANTOPRAZOLE 40MG TABLET PO SCH (05:58)
[2023-06-17] MEDS ORDERED: POTASSIUM CL SA 10 MEQ TAB PO ONE (06:00)
[2023-06-17] MEDS: LOSARTAN/HCTZ 50-12.5 PO SCH (09:00)
[2023-06-17] MEDS: ASPIRIN EC 81 MG TAB PO SCH (09:00)
--- NOTE | 2023-06-17 10:59 | P.PN ---
Date of Service: 06/17/23 Subjective Awake alert and oriented x 3, conversing well, no c/o CP Daughter and friends are at bedside he is in no acute distress Plan for heart catheterization today ROS 10 point ROS as noted above, otherwise negative Physical Exam General: AAO x3, In no apparent distress HEENT: Atraumatic, Normocephalic, PERRLA Neck: Supple, 2+ carotid pulse no bruit Respiratory: Clear to auscultation bilaterally, Normal air movement Cardiovascular: No edema, Normal pulses, Regular rate/rhythm, Normal S1 S2 Capillary refill: <2 Seconds Gastrointestinal: Normal bowel sounds, Soft and benign, Distended, nontender Musculoskeletal: No clubbing, No swelling, No contractures Neurological: Normal speech, Normal strength at 5/5 x4 extr Vitals Reviewed Problem list Chest pain r/o ACS CAD Hyperglycemia CRISTY Hypertensive disorder HLD GERD assessment and plan Chest pain r/o ACS CAD -Chest xray reports "Lungs appear clear of acute infiltrate. The heart is normal size, no acute abnormalitis displayed." -initial labs Troponin 34.2/94.4/73.4, BNP 186 -Full dose lovenox given in the ED -ASA, statin, nitroglycerin SL -EKG reports "Rate is 77 beats/min. Rhythm is regular. QRS axis is normal. MT interval is normal. QRS interval is normal. No Q waves. Twaves are normal. No ST changes noted. Clinical impression : NSR w/ non-specific ST/T changes and no evidence of ischemia." -Serial EKG negative -ECHO ordered -consult Cardiology-heart catheterization today -Stress test clear in March Hyperglycemia A1c 5.7 Serum glucose 95 CRISTY BUN/creatinine 22/1.39, GFR 55 holding IVF with BNP 186 re-evaluate in AM labs Hypertensive disorder BP 162/69 in ED BP 169/69- medication not given this AM continue home medications Lopressor IV MT Monitor Q4h HLD GERD restart home medications DVT ppx lovenox full code LOS 2 days
--- NOTE | 2023-06-17 11:08 | CON ---
Date of Consultation: 06/17/2023 Reason For Consultation: Chest pain. History Of Present Illness: A 68-year-old male with history of hypertension, coronary artery disease , peripheral vascular disease, dyslipidemia, presented to the emergency room with chest pain, left si ded, radiates to the arm. He said he had a heart catheterization about 6 to 7 years ago that was nor mal, but his chest pain is getting more progressively worse, and hence, he was admitted to the hospit al. At the present time, he is chest pain free. Past Medical History: As outlined above in HPI. Medications: Refer consultation sheet for detailed list. Allergies: NO KNOWN DRUG ALLERGIES. Family History: No premature coronary artery disease or cancer. Social History: Does not smoke or drink. Does not use any drugs. Review of Systems: All systems reviewed and they were negative except as mentioned in the HPI. Physical Examination: Vital Signs: Reviewed. Head and Neck: Pupils are equal, reactive to light. Intact eye movements. No JVD. No cervical lym phadenopathy. Neck: Supple. Thyroid is not enlarged. Lungs: Clear to auscultation bilaterally. No rhonchi, rales, or crackles. No accessory muscle use. Heart: Regular rate and rhythm. No extra sounds. Abdomen: Soft, nontender. Bowel sounds positive. No organomegaly. No masses or hernia. No rigidi ty or rebound. Extremities: No edema, clubbing, cyanosis. Intact pulses. Skin: No rash or nodule. Neurologic: Alert, awake, oriented x3. No acute focal deficits appreciated. Lymph Nodes: No cervical or axillary lymphadenopathy. Investigations: Labs reviewed. Assessment/recommendation: 1.Hov-BL-haemikomk myocardial infarction. Chest pain with elevated troponin. Keep n.p.o. Plan for coronary angiogram today and continue baby aspirin. 2.Dyslipidemia. Continue Lipitor 40 mg at bedtime. 3.Hypertension. Blood pressure is elevated. Recommend to add amlodipine 5 mg daily and plan accord ingly. SR/MODL Voice ID: [id number] Report ID: [id number]
[2023-06-17] MEDS: ENOXAPARIN 40 MG/0.4 ML SQ SCH (12:00)
[2023-06-17] MEDS ORDERED: NA CHLORIDE 0.9% 500 ML ONE (12:23)
[2023-06-17] MEDS ORDERED: LIDOCAINE 1% 20 ML MDV ONE (13:18)
[2023-06-17] MEDS ORDERED: VERAPAMIL HCL 10 MG/4 ML VIAL IV ONE (13:18)
[2023-06-17] MEDS ORDERED: HEPA 1000U/500MLS 2,000 UNIT/1,000 ML BAG IV ONE (13:18)
[2023-06-17] MEDS ORDERED: HEPARIN 10,000 UNIT/10 ML VIAL IV ONE (13:19)
[2023-06-17] MEDS ORDERED: MIDAZOLAM HCL 2 MG/2 ML INJ ONE (13:19)
[2023-06-17] MEDS ORDERED: FENTANYL CITR 100 MCG/2 ML ONE (13:19)
[2023-06-17] MEDS ORDERED: HEPARIN 5000 UNIT/ML 1 ML VIAL ONE (13:19)
[2023-06-17] MEDS ORDERED: ATROPINE SULF 1 MG/10 ML SYR IV ONE (13:19)
[2023-06-17] MEDS ORDERED: ASPIRIN 325 MG TAB ONE (13:20)
[2023-06-17] MEDS ORDERED: CLOPIDOGREL 75 MG TABLET ONE (13:20)
--- NOTE | 2023-06-17 15:51 | OP ---
Date of Procedure: 06/17/2023 Surgeon: MARGUERITE MICHAEL Procedures Performed: 1.Selective coronary angiogram. 2.Left heart catheterization. Indication: Dff-[id number] myocardial infarction. Access: Right radial artery 6-Spanish closed with TR band. Complications: None. Bleeding: Less than 20 mL. Description Of Procedure: After risks, benefits, alternatives were explained, patient agreed to proc edure, and signed informed consent. Patient was brought into cardiac catheterization laboratory, pre pped and draped in the usual sterile fashion. Then, I accessed right radial artery using pediatric m icropuncture kit, placed 6-Spanish Slender sheath and took a 5-Spanish [place] 4.0 catheter into the aort ic root, engaged the RCA, took standard views and then exchanged for 6-Spanish JL3.5 catheter and enga ged left main and took standard views and the catheter was pushed over the wire into the LV, measured the LVEDP. Pullback did not record any gradient. Then I removed the catheter and the sheath and pl aced TR band with good hemostasis. Findings: 1.Left main; diffusely diseased, severe ostial and proximal stenosis 80% at least, engaging the winsome ry with the catheter, I lost the pressure completely from 140 to 60 systolic, indicating severe ostia l left main disease. 2.LAD; proximal 40% to 50%, mid 70% and then luminal irregularities, luminal irregularities of the d iagonals. 3.Left circumflex; moderate to large size vessel. OM branch is very long, has diffuse 30% stenosis. 4.RCA; it is moderate size with proximal to mid 70% and then mid to distal 80% stenosis. 5.LVEDP at 12 mmHg. Conclusion: Severe multivessel disease including left main, coronary artery disease. Recommendations: Transfer for CABG. SR/MODL Voice ID: [id number] Report ID: [id number]
[2023-06-17 16:51] VITALS: O2SAT 99
--- NOTE | 2023-06-17 16:59 | EKG ---
Test Date: 2023-06-16 Test Time: 11:35:08 Crime Laboratory Analyst: MB MEASUREMENT RESULTS: Intervals: Rate: 77 WV: 182 QRSD: 82 QT: 344 QTc: 389 [place]: P: 79 WV: 182 QRS: 77 T: -34 INTERPRETIVE STATEMENTS: Normal sinus rhythm T wave abnormality, consider inferior ischemia Abnormal ECG Compared to ECG 06/22/2018 01:23:36 T-wave abnormality now present Possible ischemia now present ST (T wave) deviation no longer present Electronically Signed On 06-17-23 16:56:12 CREW MEMBER by Juan Huber
[2023-06-17 19:13] VITALS: BMI 32.8
[2023-06-17] MEDS: ATORVASTATIN 40 MG TAB PO SCH (20:41)
[2023-06-18] MEDS: PANTOPRAZOLE 40MG TABLET PO SCH (05:48)
[2023-06-18] MEDS ORDERED: allopurinoL 100 MG TAB ONE (06:28)
[2023-06-18] MEDS: LOSARTAN/HCTZ 50-12.5 PO SCH (08:23)
[2023-06-18] MEDS: ENOXAPARIN 40 MG/0.4 ML SQ SCH (08:24)
[2023-06-18] MEDS: ASPIRIN EC 81 MG TAB PO SCH (08:24)
[2023-06-18] MEDS ORDERED: allopurinoL 100 MG TAB PO SCH (09:00)
[2023-06-18] MEDS: HYDRALAZINE HCL 20 MG/ML VIAL IV PRN (11:15)
[2023-06-18] MEDS ORDERED: ENOXAPARIN 100 MG/ML SYR SQ SCH (12:00)
[2023-06-18 12:11] VITALS: TEMP 98.4
[2023-06-18 12:25] VITALS: BP 153/71
--- NOTE | 2023-06-18 14:40 | P.DS ---
Admission Date: 06/18/23 Discharge Date: 06/18/23 Disposition: TRANSFER TO [facility] Discharge Condition: FAIR Reason for Admission: Chest pain R/O ACS Consultations: Cardiology- Dr. Huber Procedures: [facility] [place] 06/17 Procedures Performed: 1. Selective coronary angiogram. 2. Left heart catheterization. Indication: Cwh-[id number] myocardial infarction. Access: Right radial artery 6-Tajik closed with TR band. Complications: None. Bleeding: Less than 20 mL. Description Of Procedure: After risks, benefits, alternatives were explained, patient agreed to procedure, and signed informed consent. Patient was brought into cardiac catheterization laboratory, prepped and draped in the usual sterile fashion. Then, I accessed right radial artery using pediatric micropuncture kit, placed 6-Tajik Slender sheath and took a 5-Tajik [place] 4.0 catheter into the aortic root, engaged the RCA, took standard views and then exchanged for 6-Tajik JL3.5 catheter and engaged left main and took standard views and the catheter was pushed over the wire into the LV, measured the LVEDP. Pullback did not record any gradient. Then I removed the catheter and the sheath and placed TR band with good hemostasis. Findings: 1. Left main; diffusely diseased, severe ostial and proximal stenosis 80% at least, engaging the artery with the catheter, I lost the pressure completely from 140 to 60 systolic, indicating severe ostial left main disease. 2. LAD; proximal 40% to 50%, mid 70% and then luminal irregularities, luminal irregularities of the diagonals. 3. Left circumflex; moderate to large size vessel. OM branch is very long, has diffuse 30% stenosis. 4. RCA; it is moderate size with proximal to mid 70% and then mid to distal 80% stenosis. 5. LVEDP at 12 mmHg. Conclusion: Severe multivessel disease including left main, coronary artery disease. Recommendations: Transfer for CABG Brief History of Present Illness: Johny Gamez is a 68 year old male with Pmhx GERD, HTN, HLD, CAD, PAD (stents to BLE) who presents to the ED c/o left sided chest pain radiating to the left arm with SOB with light activity that started this morning at 9 AM at work. He reports dealing with chest tightness for 7 years. He had a stress test in March of 2023 at [facility] and a stent placed to his right lower extremity which continues to swell off and on. May of 2023 he had a stent placed in his L LE. Laboratory evaluations troponin 34.2, BNP 186, lipase 56, BUN/creatinine 26/1.38, GFR 55, serum glucose 181. Initial BP 162/69, HR 76, Resp 18, oxygen saturation 98% on RA. EKG reports "Rate is 77 beats/min. Rhythm is regular. QRS axis is normal. MO interval is normal. QRS interval is normal. No Q waves. Twaves are normal. No ST changes noted. Clinical impression : NSR w/ non-specific ST/T changes and no evidence of ischemia." Chest xray reports "Lungs appear clear of acute infiltrate. The heart is normal size, no acute abnormalitis displayed." Johny will be admitted to hospitalist service for further evaluation of chest pain r/o ACS. Dr. Huber consulted. Hospital Course: Problem List Chest pain secondary to severe multivessel CAD Hyperglycemia CRISTY Hypertensive disorder HLD GERD Patient was admitted to the hospital for chest pain to rule out ACS. He had a heart cath which revealed severe multi-vessel disease and cardiology recommended transfer for CABG evaluation. Cath report as follows Procedures Performed: 1. Selective coronary angiogram. 2. Left heart catheterization. Indication: Xss-IN-lbelsnzho myocardial infarction. Access: Right radial artery 6-Tajik closed with TR band. Complications: None. Bleeding: Less than 20 mL. Description Of Procedure: After risks, benefits, alternatives were explained, patient agreed to procedure, and signed informed consent. Patient was brought into cardiac catheterization laboratory, prepped and draped in the usual sterile fashion. Then, I accessed right radial artery using pediatric micropuncture kit, placed 6-Tajik Slender sheath and took a 5-Tajik [place] 4.0 catheter into the aortic root, engaged the RCA, took standard views and then exchanged for 6-Tajik JL3.5 catheter and engaged left main and took standard views and the catheter was pushed over the wire into the LV, measured the LVEDP. Pullback did not record any gradient. Then I removed the catheter and the sheath and placed TR band with good hemostasis. Findings: 1. Left main; diffusely diseased, severe ostial and proximal stenosis 80% at least, engaging the artery with the catheter, I lost the pressure completely from 140 to 60 systolic, indicating severe ostial left main disease. 2. LAD; proximal 40% to 50%, mid 70% and then luminal irregularities, luminal irregularities of the diagonals. 3. Left circumflex; moderate to large size vessel. OM branch is very long, has diffuse 30% stenosis. 4. RCA; it is moderate size with proximal to mid 70% and then mid to distal 80% stenosis. 5. LVEDP at 12 mmHg. Conclusion: Severe multivessel disease including left main, coronary artery disease. Recommendations: Transfer for CABG Vital Signs/Physical Exam: Temp Pulse Resp BP Pulse Ox 98.4 F 73 16 153/71 H 98 06/18/23 12:00 06/18/23 12:19 06/18/23 12:19 06/18/23 12:19 06/18/23 12:19 General: Alert, In no apparent distress, Oriented x3 HEENT: Atraumatic, PERRLA Neck: Supple Respiratory: Clear to auscultation bilaterally, Normal air movement Cardiovascular: Regular rate/rhythm, Normal S1 S2 Gastrointestinal: Soft and benign Musculoskeletal: No tenderness Integumentary: No rashes Neurological: Normal speech, Normal tone Laboratory Data at Discharge: WBC 5.80 thou/uL (4.3-10.9) 06/17/23 02:05 Hgb 11.7 g/dL (13.6-17.9) L 06/17/23 02:05 Hct 34.8 % (39.6-49.0) L 06/17/23 02:05 Plt Count 223 thou/uL (152-406) 06/17/23 02:05 PT 12.0 SECONDS (9.5-12.5) 06/16/23 11:31 INR 1.09 06/16/23 11:31 Sodium 141 mEq/L (136-145) D 06/17/23 02:05 Potassium 3.5 mEq/L (3.5-5.1) 06/17/23 02:05 BUN 22 mg/dL (7-18) H 06/17/23 02:05 Creatinine 1.39 mg/dL (0.70-1.30) H 06/17/23 02:05 Glucose 95 mg/dL (74-106) 06/17/23 02:05 Phosphorus 3.1 mg/dL (2.5-4.9) 06/17/23 02:05 Magnesium 2.2 mg/dL (1.6-2.4) 06/17/23 02:05 Total Bilirubin 0.3 mg/dL (0.2-1.0) 06/16/23 11:31 AST 16 U/L (15-37) 06/16/23 11:31 ALT 28 U/L (16-61) 06/16/23 11:31 Alkaline Phosphatase 55 U/L (45-117) 06/16/23 11:31 Triglycerides 141 mg/dL (<150) 06/17/23 02:05 Cholesterol 212 mg/dL (<200) H 06/17/23 02:05 HDL Cholesterol 39 mg/dL (40-60) L 06/17/23 02:05 Cholesterol/HDL Ratio 5.44 06/17/23 02:05 Lipase 54 U/L (13-75) 06/16/23 11:31 Home Medications: Allopurinol 100 mg PO DAILY 06/21/18 Nitroglycerin [Nitrostat*] 0.4 mg SL UD PRN #15 tab 06/22/18 Amlodipine [Norvasc*] 10 mg PO DAILY 06/17/23 Aspirin Chewable [Aspirin Chewable*] 81 mg PO DAILY 06/17/23 Atorvastatin Calcium [Lipitor] 80 mg PO DAILY 06/17/23 Losartan Potassium 100 mg PO DAILY 06/17/23 Omeprazole [Prilosec] 40 mg PO DAILY 06/17/23 Tamsulosin [Flomax*] 0.4 mg PO DAILY 06/17/23 Physician Discharge Instructions: Patient was admitted to the hospital for chest pain to rule out ACS. He had a heart cath which revealed severe multi-vessel disease and cardiology recommended transfer for CABG evaluation. Cath report as follows Procedures Performed: 1. Selective coronary angiogram. 2. Left heart catheterization. Indication: Rqy-JN-cdifsojgl myocardial infarction. Access: Right radial artery 6-Tajik closed with TR band. Complications: None. Bleeding: Less than 20 mL. Description Of Procedure: After risks, benefits, alternatives were explained, vineet lagos agreed to procedure, and signed informed consent. Patient was brought into cardiac catheterization laboratory, prepped and draped in the usual sterile fashion. Then, I accessed right radial artery using pediatric micropuncture kit, placed 6-Tajik Slender sheath and took a 5-Tajik [place] 4.0 catheter into the aortic root, engaged the RCA, took standard views and then exchanged for 6-Tajik JL3.5 catheter and engaged left main and took standard views and the catheter was pushed over the wire into the LV, measured the LVEDP. Pullback did not record any gradient. Then I removed the catheter and the sheath and placed TR band with good hemostasis. Findings: 1. Left main; diffusely diseased, severe ostial and proximal stenosis 80% at least, engaging the artery with the catheter, I lost the pressure completely from 140 to 60 systolic, indicating severe ostial left main disease. 2. LAD; proximal 40% to 50%, mid 70% and then luminal irregularities, luminal irregularities of the diagonals. 3. Left circumflex; moderate to large size vessel. OM branch is very long, has diffuse 30% stenosis. 4. RCA; it is moderate size with proximal to mid 70% and then mid to distal 80% stenosis. 5. LVEDP at 12 mmHg. Conclusion: Severe multivessel disease including left main, coronary artery disease. Recommendations: Transfer for CABG Diet: AHA Activity: Ad blaze Followup: NONE,NONE [Primary Care Provider] - Time spent managing pt's care (in minutes): 30
--- NOTE | 2023-06-19 07:10 | ECHO ---
HEIGHT: 5 ft 6 in WEIGHT: 203 lb 0 oz DATE OF STUDY: 06/18/[address]: Shama Levi NP 2-DIMENSIONAL: YES M.MODE: YES DOPPLER: YES COLOR FLOW: YES TDS: PORTABLE: YES DEFINITY: BUBBLE STUDY: DIAGNOSIS: CHEST PAIN, RULE OUT ACUTE CORONARY ARTERY SYNDROME CARDIAC HISTORY: CATHERIZATION: YES SURGERY: NO PROSTHETIC VALVE: NO PACEMAKER: NO MEASUREMENTS (cm) DIASTOLIC (NORMALS) SYSTOLIC (NORMALS) IVSd 1.0 (0.6-1.2) LA Diam 3.5 (1.9-4.0) LVEF 69% LVIDd 4.6 (3.5-5.7) LVIDs 2.8 (2.0-3.5) %FS 39% LVPWd 1.2 (0.6-1.2) Ao Diam 2.6 (2.0-3.7) 2 DIMENSIONAL ASSESSMENT: RIGHT ATRIUM: NORMAL LEFT ATRIUM: NORMAL RIGHT VENTRICLE: NORMAL LEFT VENTRICLE: NORMAL TRICUSPID VALVE: NORMAL MITRAL VALVE: TRACE MITRAL REGURGITATION PULMONIC VALVE: NORMAL AORTIC VALVE: NORMAL PERICARDIAL EFFUSION: NONE AORTIC ROOT: NORMAL LEFT VENTRICULAR WALL MOTION: NORMAL DOPPLER/COLOR FLOW: TRACE MITRAL REGURGITATION COMMENTS: 1. NORMAL LEFT VENTRICULAR EJECTION FRACTION 60-65% 2. NORMAL WALL MOTION 3. GRADE I DIASTOLIC DYSFUNCTION 4. MITRAL REGURGITATION TECHNOLOGIST: ANGIE GARDNER
== END 2023-06-18 15:38 | disposition short-term general hospital (02) | DRG 287 ==
LOC: ER 11:27 → ERHOLD 14:22 → 4TH 15:44 → OBSVTOIN 06-18 13:23
PROVIDERS: ADMIT Internal Medicine; ATTEND Hospitalist
PROC: 4A023N7 Measurement of Cardiac Sampling and Pressure, Left Heart, Percutaneous Approach (ICD-10-PCS; principal; 2023-06-17)
PROC: B2111ZZ Fluoroscopy of Multiple Coronary Arteries using Low Osmolar Contrast (ICD-10-PCS; 2023-06-17)
DX: I25.110 Atherosclerotic heart disease of native coronary artery with unstable angina pectoris (principal); N17.9 Acute kidney failure, unspecified; I10 Essential (primary) hypertension; M10.9 Gout, unspecified; I73.9 Peripheral vascular disease, unspecified; E78.00 Pure hypercholesterolemia, unspecified; K21.9 Gastro-esophageal reflux disease without esophagitis; R73.9 Hyperglycemia, unspecified; Z79.899 Other long term (current) drug therapy
CPT/HCPCS: 36415; 71045; 76937; 80048; 80061; 80076; 81003; 83036; 83690; 83735; 83880; 84100; 84439; 84443; 84484; 85025; 85610; 93005; 93306; 93458; 96372; 99152; 99153; 99285; C1893; G0378; J0360; J0461; J1644; J1650; J2001; J2250; J3010; J7030; J7040; Q9966

== ENCOUNTER 2024-10-13 06:46 | Day surgery (SDC) | payer BC, OTHER ==
[2024-09-25 12:20] LABS: Absolute Lymphocytes (CBC) 1.8 K/uL (0.7-4.9); Absolute Monocytes 0.5 K/uL (0.1-1.3); Absolute Neutrophil 3.1 K/uL (1.8-8.0); Basophils % 0.7 % (0-1.3); Eosinophils % 0.8 % (0-4.4); Hematocrit 43.8 % (39.6-49.0); Hemoglobin 14.9 g/dL (13.6-17.9); Lymphocytes % 32.9 % (15.3-44.8); MCV 85.1 fL (80-100); MPV 9.8 fL (7.6-11.3); Monocytes % 8.4 % (3.3-12.3); Neutrophils % 57.2 % (41.7-73.7); Platelets 274 thou/uL (152-406); RBC Red Blood Cell Count 5.15 M/uL (4.33-5.43); Red Cell Distribution Width 14.9 % (12.1-15.2)
[2024-09-25 12:21] LABS: Specific Gravity 1.008 (1.005-1.030); Urine Bilirubin NEGATIVE (Negative); Urine Blood Negative (Negative); Urine Clarity Clear (Clear); Urine Color Colorless (Yellow); Urine Culture Reflex Order REFLEXED; Urine Glucose NEGATIVE (Negative); Urine Ketones NEGATIVE (Negative); Urine Microscopic Reflex YN NO UMIC; Urine Nitrite NEGATIVE (Negative); Urine Protein NEGATIVE (Negative); Urine Urobilinogen Normal (Normal)
[2024-09-25 12:28] LABS: PT Prothrombin Time 15.3 SECONDS (10-13.0); Protime INR 1.36
--- NOTE | 2024-09-25 13:13 | RAD REPORT ---
EXAMINATION: TWO VIEW CHEST XR CLINICAL INDICATION: Male, 69 years old. [facility] Pre-op pending spaceoar gel. Hypertension TECHNIQUE: 2 view radiographs of the chest were performed. COMPARISON: 06/16/2023. FINDINGS: The lungs are well inflated and clear. No pneumothorax or sizable effusion. The heart is normal in si ze. Mediastinal contours are unchanged with sequelae of CABG. IMPRESSION: No acute or significant abnormalities.
--- NOTE | 2024-09-28 12:18 | EKG ---
Test Date: 2024-09-25 Test Time: 11:50:50 Loading Manager: KAREN MEASUREMENT RESULTS: Intervals: Rate: 76 AL: 192 QRSD: 88 QT: 386 QTc: 434 [place]: P: 59 AL: 192 QRS: 51 T: 106 INTERPRETIVE STATEMENTS: Normal sinus rhythm Nonspecific ST and T wave abnormality Abnormal ECG No previous ECG available for comparison Electronically Signed On 09-28-24 12:10:14 CDT by Stalin Allen
[2024-10-13] MEDS: Ringers Lactate 1,000 ML IV ONE (07:20)
[2024-10-13] MEDS ORDERED: propofoL 200 MG/20 ML VIAL IV ONE (08:30)
[2024-10-13] MEDS ORDERED: LIDOCAINE 1% MPF 5 ML VIAL ONE (08:30)
[2024-10-13] MEDS ORDERED: ONDANSETRON 4 MG/2 ML VIAL ONE ×2 (08:30)
[2024-10-13] MEDS ORDERED: FENTANYL CITR 100 MCG/2 ML ONE (08:30)
[2024-10-13] MEDS: CEFAZOLIN SODIUM 2 GM/VIAL ONE (08:45)
[2024-10-13 09:47] VITALS: TEMP 97.2
[2024-10-13 10:08] VITALS: BP 128/67; O2SAT 99
[2024-10-13] MEDS ORDERED: CODEINE 30MG/APAP 300MG TAB PO PRN (10:55)
--- NOTE | 2024-10-13 11:13 | P.OP ---
Date of Service: 10/13/24 Preoperative diagnoses: Grade group 3, unfavorable intermediate risk prostate cancer BPH with LUTS Postoperative diagnoses: Grade group 3, unfavorable intermediate risk prostate cancer BPH with LUTS Principal procedures: Transrectal ultrasound-guided insertion of 2 fiducial markers Transrectal ultrasound-guided SpaceOAR gel insertion Indications for procedure: 69-year-old gentleman with multiple cardiac medical comorbidities who presented with an elevated PSA and was identified to have unfavorable intermediate risk prostate cancer on biopsy. He was counseled on options for management and elected to undergo radiation plus androgen deprivation therapy. He has been started on Orgovyx, and despite significant obstructive LUTS due to BPH, he was satisfied with his management on Flomax. As a result, he elected to proceed with SpaceOAR gel insertion in preparation for radiation, and fiducial markers were requested by radiation oncology. Procedure note: The patient was consented in the preoperative holding area before being transferred to the operative suite where general anesthesia was induced. He was placed in the high lithotomy position, after Ancef 2 g IV antimicrobial prophylaxis was provided. Pneumoboots were provided for DVT prophylaxis. The transrectal ultrasound probe was placed via his anus into his rectum with ease and visualized in sagittal as well as axial dimensions. Betadine was used to prep the perineal region. The case has begun using fiducial markers placed laterally within the peripheral zone anteriorly of the mid gland of the prostate bilaterally. 2 fiducial markers were placed using ultrasound guidance into those locations. I then turned my attention to insertion of the SpaceOAR i njection needle which was primed with normal saline. I was able to navigate the needle through the perineum in the midline over the rectal hump and into the mid base portion of the prostate. This was confirmed in axial as well as sagittal dimensions. I then aspirated and received no blood or succus before injecting a small bolus of saline which did separate within the prerectal fat plane accord ingly. It was symmetric across the midline; so I the saline syringe from the needle and connected the SpaceOAR injection components which had been primed. I then injected the SpaceOAR gel under continuous slow pressure and observed the gel to distribute bilaterally across the mid zones of the prostate from apex to base. I then remove the needle and surveyed the area ultrasonographically. While nice distribution of the SpaceOAR gel was present along the entirety of the patient's right side from the apex to the base, on the left side, the gel did not distribute to the most lateral aspect in the apical aspect of the prostate, where there was less separation that in other areas where the gel distributed more evenly. As a result, the patient was taken out of the lithotomy position, awakened from general anesthesia, transferred to a stretcher, and then transferred to the recovery room in good condition. Complications: None Discharge disposition: Follow-up should be established about 6 months after he completes radiation therapy in about the next 3 months. Sooner follow-up may be established if his LUTS progressively worsen despite the radiation therapy and it goes beyond that manageable by the radiation oncologist.
== END 2024-10-13 11:15 | disposition home or self-care (01) ==
LOC: OR 06:46
PROVIDERS: ATTEND Urology
PROC: 0VH43YZ Insertion of Other Device into Prostate and Seminal Vesicles, Percutaneous Approach (ICD-10-PCS; principal; 2024-10-13 08:15)
DX: N40.1 Benign prostatic hyperplasia with lower urinary tract symptoms (principal); C61 Malignant neoplasm of prostate
CPT/HCPCS: 93005; 87088; 85025; 87086; 36415; 85610; 81003; 71046; 55874; J2704; J2003; J3010; J2405 ×2; J7120